=== PATIENT | male | born 1950 | race Two or more races ===

== ENCOUNTER 2024-11-01 22:25 | Inpatient (IN) | payer OTHER ==
[~2024-11-01] VITALS: Ht 182.9 cm; Wt 53.5 kg
[2024-11-01] MEDS: IV NS 0.9% 1,000 ML IV ONE (22:46)
[2024-11-01 23:00] LABS: BASOPHILS % (AUTO) 0.3 % (0.0-2.0); EOSINOPHILS # (AUTO) 0.1 K/uL (0.0-0.7); EOSINOPHILS % (AUTO) 0.8 % (0.0-6.0); HEMATOCRIT 33 % (39-51); HEMOGLOBIN 10.7 g/dL (13.5-17.5); LYMPHOCYTES # (AUTO) 2.7 K/uL (0.8-4.8); MEAN CORPUSCULAR HEMOGLOBIN 35 PG (26.0-33.0); MEAN CORPUSCULAR HGB CONC 33 g/dl (31.0-36.0); MEAN CORPUSCULAR VOLUME 107 fL (80-96); MONOCYTES # (AUTO) 0.4 K/uL (0.1-1.30); NEUTROPHILS # (AUTO) 3.6 K/uL (1.8-8.9); NEUTROPHILS % (AUTO) 52.9 % (43.0-81.0); PLATELET COUNT (AUTO) 315 K/uL (150-450); RED BLOOD CELL COUNT(AUTO) 3.05 MIL/uL (4.5-6.0); RED CELL DISTRIBUTION WIDTH 19.7 % (11.5-15.0); WHITE BLOOD COUNT (AUTO) 6.8 K/uL (4.3-11.0)
[2024-11-01 23:07] LABS: CALCIUM, SERUM 9.1 mg/dL (8.5-10.1); CARBON DIOXIDE 36 mmol/L (21-32); CHLORIDE 99 mmol/L (98-107); CREATININE 0.6 mg/dL (0.6-1.3); GLUCOSE 141 mg/dL (74-106); SODIUM SERUM 139 mmol/L (136-145); UREA NITROGEN, BLOOD 25 mg/dL (7-18)
[2024-11-01 23:18] LABS: LACTIC ACID 2.1 mmol/L (0.4-2.0)
[2024-11-01 23:20] LABS: ALANINE AMINOTRANSFERASE 87 U/L (12-78); ALBUMIN 2.7 g/dL (3.4-5.0); ALKALINE PHOSPHATASE 165 U/L (46-116); ASPARTATE AMINOTRANSFERASE 72 U/L (15-37); BILIRUBIN,TOTAL 0.4 mg/dL (0.2-1.0); NT-PRO BNP 204 pg/mL (0-125); TOTAL PROTEIN, SERUM 7.1 g/dL (6.4-8.2)
[2024-11-01 23:47] LABS: LYMPHOCYTES % (MANUAL) 41 % (16-48); MONOCYTES % (MANUAL) 8 % (0-11.0); NEUTROPHILS % (MANUAL) 51 (42-76)
[2024-11-01 23:48] LABS: ANISOCYTOSIS 1+; PLATELET ESTIMATE ADEQUATE
[2024-11-01 23:49] LABS: STOMATOCYTES 1+
[2024-11-01 23:53] LABS: APPEARANCE,URINE CLEAR (CLEAR); BILIRUBIN,URINE NEGATIVE (NEGATIVE); BLOOD, URINE TRACE-INTA Ery/uL (NEGATIVE); COLOR,URINE YELLOW (YELLOW); KETONES,URINE NEGATIVE (NEGATIVE); LEUKOCYTE ESTERASE ,URINE 1+ (NEGATIVE); NITRITE, URINE NEGATIVE (NEGATIVE); PROTEIN,URINE NEGATIVE (NEGATIVE); UGLUCOSE NEGATIVE (NEGATIVE); UROBILINOGEN,URINE 0.2 EU/dL (0.2)
[2024-11-02 00:05] LABS: ADD URINE CULTURE YES; BACTERIA,URINE Many /HPF (None Seen)
[2024-11-02] MEDS ORDERED: PIPERACI/TAZO 3.375GM/D5W 50ML PB IV ONE (00:57)
[2024-11-02] MEDS: IV NS 0.9% 1,000 ML IV ONE ×2 (00:58)
[2024-11-02] MEDS: PIPERACILLIN /TAZOBACTAM 3.375 G in IV D5W 50 ML IV ONE (00:58)
[2024-11-02 02:26] LABS: BILIRUBIN,DIRECT 0.1 mg/dL (0.0-0.2)
[2024-11-02] MEDS ORDERED: ONDANSETRON HCL/PF 4 MG/2 ML VIAL IVP PRN (02:30)
[2024-11-02] MEDS ORDERED: ACETAMINOPHEN 325 MG TABLET PO PRN (02:30)
[2024-11-02] MEDS ORDERED: MAGNESIUM HYDROXIDE 30 ML UDC PO PRN (02:30)
[2024-11-02] MEDS ORDERED: Z GUARD REMEDY 4 OZ OINT TP PRN (02:30)
[2024-11-02] MEDS ORDERED: MAG HYDROX/AL HYDROX/SIMETH 30 ML UDC PO PRN (02:30)
[2024-11-02 02:39] LABS: LACTIC ACID REFLEX 1.3 mmol/L (0.4-1.9)
[2024-11-02] MEDS: IV NS 0.9% 1,000 ML IV SCH (03:59)
[2024-11-02] MEDS: ENOXAPARIN SODIUM 40 MG/0.4 ML DISP.SYRIN SQ SCH (04:00)
[2024-11-02 06:13] LABS: ABG BASE EXCESS 7.4 mmol/L (-2.0-3.0); ABG OXYGEN SATURATION 98.4 % (94.0-98.0); ABG PCO2 44.8 mmHg (35.0-48.0); ABG PO2 127.1 mmHg (83.0-108.0); ABG TOTAL HEMOGLOBIN 10.2 G/dL (13.5-17.5); COHb 0.2 % (0.5-1.5); MetHb 0.2 % (0.0-1.5); PEEP,BG 5 cm H2O; SITE, ABG RIGHT BRACHIAL; VT, ABG 350 mL
[2024-11-02 07:12] LABS: BASOPHILS % (AUTO) 0.2 % (0.0-2.0); EOSINOPHILS % (AUTO) 0.2 % (0.0-6.0); HEMATOCRIT 31 % (39-51); HEMOGLOBIN 9.9 g/dL (13.5-17.5); LYMPHOCYTES # (AUTO) 1.8 K/uL (0.8-4.8); LYMPHOCYTES % (AUTO) 17.9 % (20.0-44.0); MEAN CORPUSCULAR HEMOGLOBIN 35 PG (26.0-33.0); MEAN CORPUSCULAR HGB CONC 32 g/dl (31.0-36.0); MEAN CORPUSCULAR VOLUME 108 fL (80-96); MONOCYTES # (AUTO) 0.5 K/uL (0.1-1.30); MONOCYTES % (AUTO) 5.2 % (2.0-12.0); NEUTROPHILS # (AUTO) 7.8 K/uL (1.8-8.9); NEUTROPHILS % (AUTO) 76.5 % (43.0-81.0); PLATELET COUNT (AUTO) 267 K/uL (150-450); RED BLOOD CELL COUNT(AUTO) 2.86 MIL/uL (4.5-6.0); RED CELL DISTRIBUTION WIDTH 19.3 % (11.5-15.0); WHITE BLOOD COUNT (AUTO) 10.2 K/uL (4.3-11.0)
[2024-11-02 07:32] LABS: CALCIUM, SERUM 8.4 mg/dL (8.5-10.1); CREATININE 0.6 mg/dL (0.6-1.3); MAGNESIUM 2.2 mg/dL (1.8-2.4); PHOSPHORUS 3.6 mg/dL (2.5-4.9); POTASSIUM 3.7 mmol/L (3.5-5.1)
[2024-11-02 08:00] VITALS: BP 109/45; TEMP 98; O2SAT 100
[2024-11-02] MEDS: PANTOPRAZOLE 40 MG VIAL IV SCH (08:25)
[2024-11-02] MEDS ORDERED: PIPERACILLIN /TAZOBACTAM 3.375 G in IV D5W 50 ML IV SCH (09:00)
[2024-11-02] MEDS ORDERED: APIX2.5T GT (11:54)
[2024-11-02] MEDS ORDERED: CHLO473M5 PO (11:54)
[2024-11-02] MEDS ORDERED: ASCO-373 GT (11:54)
[2024-11-02] MEDS ORDERED: MAGN400T52 GT (11:54)
[2024-11-02] MEDS ORDERED: MULT-213 GT (11:54)
[2024-11-02] MEDS ORDERED: CHOL200059 GT (11:54)
[2024-11-02] MEDS ORDERED: DOCU100C36 GT (11:54)
[2024-11-02] MEDS ORDERED: CALC-343 GT (11:54)
[2024-11-02] MEDS ORDERED: CYAN-51 GT (11:54)
[2024-11-02] MEDS ORDERED: POLY17PO4 GT (11:54)
[2024-11-02] MEDS ORDERED: LACT-209 GT (11:54)
[2024-11-02] MEDS ORDERED: SENN-261 GT (11:54)
[2024-11-02] MEDS ORDERED: ALEN70TA80 GT (11:54)
[2024-11-02] MEDS ORDERED: SIME80TA15 GT (11:54)
[2024-11-02] MEDS ORDERED: LINA72CA GT (11:54)
[2024-11-02] MEDS ORDERED: AMIN30LI2 PO (11:54)
[2024-11-02 12:00] VITALS: BP 104/47; TEMP 97.9; O2SAT 99
[2024-11-02] MEDS: PIPERACILLIN /TAZOBACTAM 3.375 G in IV D5W 100 ML IV SCH (12:02)
[2024-11-02] MEDS: JEVITY 1.2 CAL 1,000 ML BOTTLE GT PRN (13:17)
[2024-11-02] MEDS ORDERED: ALBUTEROL HALF STRENGTH 1.25 MG/3 ML VIAL.NEB NEB PRN (13:30)
[2024-11-02] MEDS ORDERED: IPRATROPIUM NEB FS 0.5 MG/2.5 ML AMPUL.NEB NEB PRN (13:30)
[2024-11-02 16:00] VITALS: BP 94/41; TEMP 98.1; O2SAT 97
[2024-11-02] MEDS ORDERED: MIDODRINE HCL (5MG) 5 MG TABLET PO PRN (16:30)
[2024-11-02] MEDS: MIDODRINE HCL (5MG) 5 MG TABLET GT PRN (16:57)
[2024-11-02 20:00] VITALS: BP 96/52; TEMP 98.1; O2SAT 97
[2024-11-03] VITALS: BP 109/47; TEMP 97.9; O2SAT 97
[2024-11-03 04:00] VITALS: BP 119/48; TEMP 97.9; O2SAT 97
[2024-11-03 07:26] LABS: BASOPHILS % (AUTO) 0.4 % (0.0-2.0); EOSINOPHILS # (AUTO) 0.1 K/uL (0.0-0.7); EOSINOPHILS % (AUTO) 0.7 % (0.0-6.0); HEMATOCRIT 27 % (39-51); HEMOGLOBIN 8.9 g/dL (13.5-17.5); LYMPHOCYTES # (AUTO) 2.6 K/uL (0.8-4.8); LYMPHOCYTES % (AUTO) 29.1 % (20.0-44.0); MEAN CORPUSCULAR HEMOGLOBIN 35 PG (26.0-33.0); MEAN CORPUSCULAR HGB CONC 33 g/dl (31.0-36.0); MEAN CORPUSCULAR VOLUME 106 fL (80-96); MONOCYTES # (AUTO) 0.5 K/uL (0.1-1.30); MONOCYTES % (AUTO) 5.5 % (2.0-12.0); NEUTROPHILS # (AUTO) 5.7 K/uL (1.8-8.9); NEUTROPHILS % (AUTO) 64.3 % (43.0-81.0); PLATELET COUNT (AUTO) 275 K/uL (150-450); RED BLOOD CELL COUNT(AUTO) 2.57 MIL/uL (4.5-6.0); RED CELL DISTRIBUTION WIDTH 19.8 % (11.5-15.0); WHITE BLOOD COUNT (AUTO) 8.8 K/uL (4.3-11.0)
[2024-11-03 07:52] LABS: ALBUMIN 2.2 g/dL (3.4-5.0); BILIRUBIN,TOTAL 0.5 mg/dL (0.2-1.0); CALCIUM, SERUM 8.6 mg/dL (8.5-10.1); CREATININE 0.6 mg/dL (0.6-1.3); MAGNESIUM 2.2 mg/dL (1.8-2.4); PHOSPHORUS 3.1 mg/dL (2.5-4.9); POTASSIUM 3.2 mmol/L (3.5-5.1); TOTAL PROTEIN, SERUM 5.9 g/dL (6.4-8.2)
[2024-11-03 08:00] VITALS: BP 107/46; TEMP 98.2; O2SAT 97
[2024-11-03] MEDS: PANTOPRAZOLE 40 MG/PACK PACK NG SCH (09:19)
[2024-11-03] MEDS: POTASSIUM CHLORIDE 20 MEQ POWDER PACKET NG SCH (10:27)
[2024-11-03 11:38] LABS: ANISOCYTOSIS 1+; LYMPHOCYTES % (MANUAL) 27 % (16-48); MONOCYTES % (MANUAL) 4 % (0-11.0); NEUTROPHILS % (MANUAL) 69 (42-76); PLATELET ESTIMATE ADEQUATE; STOMATOCYTES 2+
[2024-11-03 12:00] VITALS: BP 121/87; TEMP 98.9; O2SAT 97
[2024-11-03] MEDS: IV NS 0.9% 1,000 ML IV PRN (13:16)
[2024-11-03 16:00] VITALS: BP 106/50; TEMP 97.9; O2SAT 97
[2024-11-03 20:00] VITALS: BP 100/46; TEMP 97.9; O2SAT 96
[2024-11-03] MEDS: SIMETHICONE 80 MG TAB.CHEW GT SCH (22:31)
[2024-11-04] VITALS (7 sets, daily range): BP systolic 94–125; BP diastolic 43–64; TEMP 97.5–98.8; O2SAT 95–99
[2024-11-04] MEDS: POLYETHYLENE GLYCOL 3350 17 GM POWD.PACK GT SCH (08:38)
[2024-11-04] MEDS: CALCIUM CARBONATE (1250) 500 MG TABLET GT SCH (08:38)
[2024-11-04] MEDS: SENNOSIDES 8.6 MG TABLET GT SCH (08:38)
[2024-11-04] MEDS: CHLORHEXIDINE GLUCONATE 15 ML UDC MM SCH (08:38)
[2024-11-04] MEDS: MULTIVITAMINS,THERAGRAN 1 UDTAB TABLET GT SCH (08:38)
[2024-11-04] MEDS: ASCORBIC ACID 500 MG TABLET GT SCH (08:39)
[2024-11-04] MEDS: CYANOCOBALAMIN 500 MCG TABLET GT SCH (08:39)
[2024-11-04] MEDS: APIXABAN 2.5 MG TABLET GT SCH (08:42)
[2024-11-04] MEDS: DOCUSATE SODIUM 100 MG CAPSULE PO SCH (09:06)
[2024-11-04] MEDS: PROSOURCE / PROSTAT (PYXIS) 30 ML UDC GT SCH (11:08)
[2024-11-05] VITALS: BP 115/60; TEMP 97.2; O2SAT 97
[2024-11-05 04:00] VITALS: BP 104/53; TEMP 97.3; O2SAT 98
[2024-11-05 06:47] LABS: BASOPHILS % (AUTO) 0.3 % (0.0-2.0); EOSINOPHILS # (AUTO) 0.1 K/uL (0.0-0.7); EOSINOPHILS % (AUTO) 1.3 % (0.0-6.0); HEMATOCRIT 27 % (39-51); HEMOGLOBIN 9.2 g/dL (13.5-17.5); LYMPHOCYTES # (AUTO) 1.9 K/uL (0.8-4.8); LYMPHOCYTES % (AUTO) 31.8 % (20.0-44.0); MEAN CORPUSCULAR HEMOGLOBIN 36 PG (26.0-33.0); MEAN CORPUSCULAR HGB CONC 34 g/dl (31.0-36.0); MEAN CORPUSCULAR VOLUME 106 fL (80-96); MONOCYTES # (AUTO) 0.4 K/uL (0.1-1.30); MONOCYTES % (AUTO) 7.1 % (2.0-12.0); NEUTROPHILS # (AUTO) 3.6 K/uL (1.8-8.9); NEUTROPHILS % (AUTO) 59.5 % (43.0-81.0); PLATELET COUNT (AUTO) 224 K/uL (150-450); RED BLOOD CELL COUNT(AUTO) 2.57 MIL/uL (4.5-6.0); RED CELL DISTRIBUTION WIDTH 19.7 % (11.5-15.0)
[2024-11-05 07:20] LABS: CALCIUM, SERUM 8.5 mg/dL (8.5-10.1); CREATININE 0.6 mg/dL (0.6-1.3); MAGNESIUM 2.1 mg/dL (1.8-2.4); PHOSPHORUS 3.3 mg/dL (2.5-4.9); POTASSIUM 3.4 mmol/L (3.5-5.1)
[2024-11-05 08:00] VITALS: BP 90/52; TEMP 97.5; O2SAT 97
[2024-11-05] MEDS ORDERED: DIATR MEGLU/DIATRIZOATE SODIUM 120 ML BOTTLE (GASTROGRAPHIN) ONE (09:09)
[2024-11-05] MEDS: MEROPENEM 500 MG in IV NS 0.9% 50 ML IV SCH (09:11)
[2024-11-05] MEDS: POTASSIUM CHLORIDE 20 MEQ POWDER PACKET NG SCH (10:30)
[2024-11-05 12:00] VITALS: BP 105/50; TEMP 97.3; O2SAT 97
[2024-11-05 16:00] VITALS: BP 114/51; TEMP 97.6; O2SAT 98
[2024-11-05] MEDS: POTASSIUM CHLORIDE 20 MEQ POWDER PACKET GT ONE (18:33)
[2024-11-05 20:00] VITALS: BP 98/63; TEMP 97.7; O2SAT 95
[2024-11-06] VITALS: BP 122/67; TEMP 97.7; O2SAT 98
[2024-11-06 04:00] VITALS: BP 130/67; TEMP 97.5; O2SAT 98
[2024-11-06 07:43] LABS: BASOPHILS % (AUTO) 0.2 % (0.0-2.0); CALCIUM, SERUM 8.5 mg/dL (8.5-10.1); CREATININE 0.5 mg/dL (0.6-1.3); EOSINOPHILS # (AUTO) 0.1 K/uL (0.0-0.7); EOSINOPHILS % (AUTO) 2.2 % (0.0-6.0); HEMATOCRIT 30 % (39-51); HEMOGLOBIN 9.9 g/dL (13.5-17.5); LYMPHOCYTES # (AUTO) 1.3 K/uL (0.8-4.8); LYMPHOCYTES % (AUTO) 26.2 % (20.0-44.0); MAGNESIUM 2.3 mg/dL (1.8-2.4); MEAN CORPUSCULAR HEMOGLOBIN 34 PG (26.0-33.0); MEAN CORPUSCULAR HGB CONC 33 g/dl (31.0-36.0); MEAN CORPUSCULAR VOLUME 106 fL (80-96); MONOCYTES # (AUTO) 0.3 K/uL (0.1-1.30); MONOCYTES % (AUTO) 5.8 % (2.0-12.0); NEUTROPHILS # (AUTO) 3.3 K/uL (1.8-8.9); NEUTROPHILS % (AUTO) 65.6 % (43.0-81.0); PHOSPHORUS 3.1 mg/dL (2.5-4.9); PLATELET COUNT (AUTO) 217 K/uL (150-450); POTASSIUM 3.3 mmol/L (3.5-5.1); RED BLOOD CELL COUNT(AUTO) 2.88 MIL/uL (4.5-6.0); RED CELL DISTRIBUTION WIDTH 19.7 % (11.5-15.0)
[2024-11-06 08:00] VITALS: BP 97/78; TEMP 97.7; O2SAT 97
[2024-11-06] MEDS: POTASSIUM CHLORIDE 20 MEQ POWDER PACKET NG SCH (10:46)
[2024-11-06 12:00] VITALS: BP 107/49; TEMP 97.3; O2SAT 97
[2024-11-06 16:00] VITALS: BP 118/62; TEMP 97.3; O2SAT 97
[2024-11-06 20:00] VITALS: BP 109/63; TEMP 97.2; O2SAT 97
[2024-11-07] VITALS: BP 104/58; TEMP 97.5; O2SAT 97
[2024-11-07 04:00] VITALS: BP 121/55; TEMP 98.2; O2SAT 97
[2024-11-07 07:11] LABS: BASOPHILS % (AUTO) 0.4 % (0.0-2.0); EOSINOPHILS # (AUTO) 0.1 K/uL (0.0-0.7); EOSINOPHILS % (AUTO) 3.4 % (0.0-6.0); HEMATOCRIT 30 % (39-51); HEMOGLOBIN 9.5 g/dL (13.5-17.5); LYMPHOCYTES # (AUTO) 1.2 K/uL (0.8-4.8); LYMPHOCYTES % (AUTO) 30.4 % (20.0-44.0); MEAN CORPUSCULAR HEMOGLOBIN 34 PG (26.0-33.0); MEAN CORPUSCULAR HGB CONC 32 g/dl (31.0-36.0); MEAN CORPUSCULAR VOLUME 107 fL (80-96); MONOCYTES # (AUTO) 0.2 K/uL (0.1-1.30); MONOCYTES % (AUTO) 5.8 % (2.0-12.0); NEUTROPHILS # (AUTO) 2.4 K/uL (1.8-8.9); PLATELET COUNT (AUTO) 217 K/uL (150-450); RED BLOOD CELL COUNT(AUTO) 2.77 MIL/uL (4.5-6.0); RED CELL DISTRIBUTION WIDTH 19.4 % (11.5-15.0); WHITE BLOOD COUNT (AUTO) 4.1 K/uL (4.3-11.0)
[2024-11-07 07:34] LABS: CALCIUM, SERUM 8.6 mg/dL (8.5-10.1); CREATININE 0.5 mg/dL (0.6-1.3); MAGNESIUM 2.1 mg/dL (1.8-2.4); PHOSPHORUS 2.7 mg/dL (2.5-4.9); POTASSIUM 3.5 mmol/L (3.5-5.1)
[2024-11-07 08:00] VITALS: BP 111/44; TEMP 98.2; O2SAT 97
[2024-11-07 12:00] VITALS: BP 111/52; TEMP 98.1; O2SAT 96
[2024-11-07 16:00] VITALS: BP 99/57; TEMP 98.4; O2SAT 96
[2024-11-07 20:00] VITALS: BP 123/63; TEMP 98.1; O2SAT 99
[2024-11-08] VITALS: BP 118/52; TEMP 98.4; O2SAT 97
[2024-11-08 04:00] VITALS: BP 110/57; TEMP 98.4; O2SAT 97
[2024-11-08 08:00] VITALS: BP 124/71; TEMP 98.2; O2SAT 99
[2024-11-08 12:00] VITALS: BP 125/55; TEMP 97.6; O2SAT 95
[2024-11-08 16:00] VITALS: BP 114/55; TEMP 97.5; O2SAT 95
[2024-11-08 20:00] VITALS: BP 136/81; TEMP 97.7; O2SAT 95
[2024-11-09] VITALS: BP 130/75; TEMP 97.9; O2SAT 96
[2024-11-09 04:00] VITALS: BP 129/56; TEMP 97.7; O2SAT 98
[2024-11-09 08:00] VITALS: BP 114/55; TEMP 97.6; O2SAT 97
[2024-11-09 12:00] VITALS: BP 108/39; TEMP 97.5; O2SAT 97
[2024-11-09 16:00] VITALS: BP 113/51; TEMP 97.7; O2SAT 96
[2024-11-09 20:00] VITALS: BP_SYST 113; BP_SYST 117; BP_DIAS 46; BP_DIAS 52; TEMP 97.4; O2SAT 95; O2SAT 98
[2024-11-10] VITALS: BP 120/55; TEMP 97.6; O2SAT 98
[2024-11-10 00:55] VITALS: BP 120/55; TEMP 97.6; O2SAT 98
[2024-11-10 04:00] VITALS: BP 111/53; TEMP 97; O2SAT 97
[2024-11-10 06:55] LABS: CALCIUM, SERUM 8.6 mg/dL (8.5-10.1); CREATININE 0.5 mg/dL (0.6-1.3); MAGNESIUM 2.3 mg/dL (1.8-2.4); PHOSPHORUS 2.6 mg/dL (2.5-4.9); POTASSIUM 3.3 mmol/L (3.5-5.1)
[2024-11-10 07:41] LABS: BASOPHILS % (AUTO) 0.5 % (0.0-2.0); EOSINOPHILS # (AUTO) 0.1 K/uL (0.0-0.7); EOSINOPHILS % (AUTO) 1.5 % (0.0-6.0); HEMATOCRIT 30 % (39-51); HEMOGLOBIN 9.9 g/dL (13.5-17.5); LYMPHOCYTES # (AUTO) 1.9 K/uL (0.8-4.8); MEAN CORPUSCULAR HEMOGLOBIN 34 PG (26.0-33.0); MEAN CORPUSCULAR HGB CONC 33 g/dl (31.0-36.0); MEAN CORPUSCULAR VOLUME 105 fL (80-96); MONOCYTES # (AUTO) 0.4 K/uL (0.1-1.30); MONOCYTES % (AUTO) 6.8 % (2.0-12.0); NEUTROPHILS # (AUTO) 3.3 K/uL (1.8-8.9); NEUTROPHILS % (AUTO) 57.2 % (43.0-81.0); PLATELET COUNT (AUTO) 206 K/uL (150-450); RED CELL DISTRIBUTION WIDTH 20.2 % (11.5-15.0); WHITE BLOOD COUNT (AUTO) 5.7 K/uL (4.3-11.0)
[2024-11-10 08:00] VITALS: BP 109/61; TEMP 98.2; O2SAT 97
[2024-11-10] MEDS ORDERED: ERTA1VIA4 IJ (09:51)
[2024-11-10] MEDS: POTASSIUM CHLORIDE 20 MEQ POWDER PACKET NG SCH (09:58)
[2024-11-10 12:00] VITALS: BP 119/63; TEMP 97.7; O2SAT 96
== END 2024-11-10 14:10 | DRG 720 ==
LOC: ER 22:36 → ICUOV 11-02 03:06 → TELE1 11-02 03:43
PROVIDERS: ATTEND Nurse Practitioner Acute Care
PROC: 5A1955Z Respiratory Ventilation, Greater than 96 Consecutive Hours (ICD-10-PCS; principal; 2024-11-02)
DX: A41.9 Sepsis, unspecified organism (principal); G82.50 Quadriplegia, unspecified; J90 Pleural effusion, not elsewhere classified; E44.0 Moderate protein-calorie malnutrition; E87.20 Acidosis, unspecified; K56.7 Ileus, unspecified; Z99.11 Dependence on respirator [ventilator] status; Z93.0 Tracheostomy status; J96.10 Chronic respiratory failure, unspecified whether with hypoxia or hypercapnia; N13.9 Obstructive and reflux uropathy, unspecified; Z74.01 Bed confinement status; Z93.1 Gastrostomy status; N39.0 Urinary tract infection, site not specified; R13.10 Dysphagia, unspecified; F79 Unspecified intellectual disabilities; H91.90 Unspecified hearing loss, unspecified ear; H54.8 Legal blindness, as defined in USA; F03.90 Unspecified dementia, unspecified severity, without behavioral disturbance, psychotic disturbance, mood disturbance, and anxiety; E88.09 Other disorders of plasma-protein metabolism, not elsewhere classified; R47.9 Unspecified speech disturbances; H47.9 Unspecified disorder of visual pathways; R32 Unspecified urinary incontinence; R15.9 Full incontinence of feces; Z79.899 Other long term (current) drug therapy; Z79.83 Long term (current) use of bisphosphonates; B96.89 Other specified bacterial agents as the cause of diseases classified elsewhere; E87.70 Fluid overload, unspecified; J98.11 Atelectasis; Z16.12 Extended spectrum beta lactamase (ESBL) resistance
CPT/HCPCS: 31720; 36415; 36600; 71045-TC; 71250-TC; 74018; 74250-TC; 80048-TC; 80053-TC; 81001; 82248-TC; 82803-TC; 83605-TC; 83735-TC; 83880; 84100-TC; 84484-TC; 85025-TC; 87040-TC; 87081-TC; 87086-TC; 87186-TC; 93307-TC; 94002-TC; 94003-TC; 94760-TC; 94762-TC; 94799-TC; A4223; A4565; A6403; G0378; J1650; J2185; J2470; J2543; J3490; J7030; J7050; J7060; Q9963